=== PATIENT | male | born 1975 | race Caucasian/White ===

== ENCOUNTER 2020-04-02 10:05 | Emergency (ER) | payer OTHER ==
--- OUTSIDE RECORDS SUMMARY | 2020-04-02 10:33 | XMS REPORT | Summary of Care ---
:1975 Author Organization [facility] - [facility] Address [address] [place] [address] Care Team Providers Name Role Phone Dalton Paul Primary Care Provider Reason for Visit Reason Comments Body Aches Fever Cough Fatigue Encounter Details Date Type Department Care Team Description 03/26/2020 Urgent Care [facility] Family Minerva Bryan PA [address] [place] [id number] Acute URI (Primary Dx); [facility] Exposure to COVID-19 virus [address] [place] [address] Allergies No Known Allergiesdocumented as of this encounter (statuses as of 03/26/2020) Medications Medication Sig Dispensed Refills Start Date End Date Status PILOCARPINE HCL Place in each 0 Active (PILOCAR OPHTHALMIC) eye. fluticasone (FLONASE) Use 2 Sprays in 1 Bottle 5 01/10/2012 Active 50 mcg/actuation nasal each nostril 2 spray (two) times daily. ranitidine (ZANTAC See patient 56 Tab 1 03/13/2012 Active MAXIMUM STRENGTH) 150 instructions to mg tabletIndications: wean off of Laryngopharyngeal proton pump reflux (LPR), Globus inhibitor therapy sensation pantoprazole (PROTONIX) Take 40 mg by 0 Active 40 mg EC tablet mouth daily. escitalopram (LEXAPRO) Take 10 mg by 0 Active 10 mg tablet mouth daily. CALCIUM Take by mouth. 0 Acti ve CARBONATE/VITAMIN D3 (VITAMIN D-3 ORAL) MULTIVITAMIN ORAL Take by mouth. 0 Active DOCOSAHEXANOIC ACID/EPA Take 2 Caps by 0 Active (FISH OIL ORAL) mouth daily. psyllium seed, with Take by mouth. 0 Active dextrose, (FIBER ORAL) predniSONE 20 mg 2 tabs now and 2 10 tablet 0 10/19/2018 Active tabletIndications: tabs early each Olecranon bursitis of morning for total left elbow of 5 doses. naproxen 375 mg Take 1 tablet by 60 tablet 1 10/19/2018 Active tabletIndications: mouth 2 (two) Olecranon bursitis of times daily with left elbow meals. benzonatate (TESSALON Take 1 capsule by 20 capsule 0 Active PERLES) 100 mg mouth 3 (three) capsuleIndications: times daily. 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 Allergic rhinitis 09/03/2011 Overview: ICD10 Diagnosis Term Hardness Tester Utility documented as of this encounter (statuses as of 03/26/2020) Immunizations Name Administration Dates Next Due TDAP 09/11/2014 documented as of this encounter Social History Tobacco Use Types Packs/Day Years Used Date Never Smoker Smokeless Tobacco: Never Used Alcohol Use Drinks/Week oz/Week Comments Yes social Sex Assigned at Date Recorded Not on file COVID-19 Exposure Response Date Recorded In the last month, have you been in contact with Yes 03/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 documented as of this encounter Last Filed Vital Signs Vital Sign Reading Time Taken Comments Blood Pressure 122/75 03/26/2020 8:35 AM HIGH SPEED OPERATOR Pulse 74 03/26/2020 8:35 AM HIGH SPEED OPERATOR Temperature 37.9 C (100.2 F) 03/26/2020 8:35 AM HIGH SPEED OPERATOR Respiratory Rate 14 03/26/2020 8:35 AM HIGH SPEED OPERATOR Oxygen Saturation 96% 03/26/2020 8:35 AM HIGH SPEED OPERATOR Inhaled Oxygen Concentration - - Weight 104.3 kg (230 lb) 03/26/2020 8:35 AM HIGH SPEED OPERATOR Height 182.9 cm (6') 03/26/2020 8:35 AM HIGH SPEED OPERATOR Body Mass Index 31.19 03/26/2020 8:35 AM HIGH SPEED OPERATOR documented in this encounter Patient Instructions Patient InstructionsSandra Bryan PA - 03/26/2020 8:00 AM HIGH SPEED OPERATOR Patient Education Coronavirus Disease 2019 (COVID-19): Overview Coronavirus disease 2019 (COVID-19) is a respiratory illness. It's caused by a new (novel) coronavirus. There are many types of coronavirus. Coronaviruses are a very common cause of colds and bronchitis. They may sometimes cause lung infection (pneumonia). Symptoms can range from mild to severe. Some people have no symptoms.These viruses are also found in some animals. All 50 states in the [place] have reported cases of COVID-19. Most states report "community spread" of COVID-19. This means the source of the illness is not known.COVID-19 is a rapidly-emerging infectious disease. This means that scientists are actively researching it.There are information updates reg ularly. Public health officials are working to find the source. How the virus spreads is not yet fully understood, but it seems to spread and infect people fairly easily. Some people who have been infected in an area may not be sure how or where they were infected. The virus may be spread through droplets of fluid that a person coughs or sneezes into the air. It may be spread if you touch a surface with the virus on it, such as a handle or object, and then touch your eyes, nose, or mouth. For the latest information, visit the CDC website at www.cdc.gov/coronavirus/2019-ncov. Or call 619-DUD-PBWY (273-014-9114). What are the symptoms of COVID-19? Some people have no symptoms or mild symptoms. Symptoms can also vary from person to person. As experts learn more about COVID-19, other symptoms are being reported. Symptoms may appear 2 to 14 days after contact with the virus: Fever or chills Coughing Trouble breathing or feeling short of breath Sore throat Stuffy or runny nose Headache and body aches Fatigue Nausea, vomiting, diarrhea, or abdominal pain New loss of sense of smell or taste You can check your symptoms with the [facility] Coronavirus Self-Plate Gauger. What are possible complications from COVID-19? In many cases, this virus can cause infection (pneumonia) in both lungs. In some cases, this can cause . Certain people are at higher risk for complications. This includes older adults and people with serious chronic health conditions such as heart or lung disease, diabetes, or kidney disease. It includes people with health conditions that suppress the immune system. And it includes people taking medicines that suppress the immune system. As experts learn more about COVID-19, other complications are being reported that may be linked to COVID-19. Rarely, some children have developed severe complications called multisystem inflammatory syndrome in children (MIS-C). MIS- C seems to be similar to [place] disease, a rare condition causing inflammation of blood vessels and body organs. It's not yet known if MIS-C happens only in children, orif adults are also at risk. It's also not known if it's related to COVID-19, because many children, but not all, have tested positive for the virus. Experts continue to study MIS-C. The CDC advises healthcare providers to report to local health departments any person under age 2121 years old who is ill enough to be in the hospital and has all of the following: A fever over 100.4F (38.0C) for more than 24 hours and a positive SARS-CoV-2 test or exposureto the virus in the last 4 weeks Inflammation in at least 2 organs such as the heart, lungs, or kidneys with lab tests that show inflammation No other diagnoses besides COVID-19 explain the child's symptoms How is COVID-19 diagnosed? Your healthcare provider will ask about your symptoms. He or she will ask where you live, and about your recent travel, and any contact with sick people. If your healthcare provider thinks you may haveCOVID-19, he or she will consider whether to test you for COVID-19. This depends on the availabilityof testing in your area, and how sick you are. Follow all instructions from your healthcare provider. Guidelines for testing may change as more information about the virus becomes available. Currently,COVID-19 is diagnosed by: Viral test. Viral tests tell if you have a current COVID-19 infection. A nose-throat swab may bewiped inside your nose to the back of your throat. Or a sample of your saliva may be taken. Either of these samples will be checked for the SARS-CoV-2 virus. Availability of tests vary. Some test kits can be done at home, but must be sent to a lab to be checked. Viral tests called lauft-fr-bxsi tests (POCTs) may be done at some testing sites. The results are available within about an hour. Other types of viral tests must be sent to a lab, and it may be several days before the results are back. If your healthcare provider thinks or confirms that you have COVID-19, you may have other tests. These tests may include: Antibody blood test. Antibody tests are being looked at to find out if a person has previously been infected with the virus and may now have antibodies such as SARS AB IgG in their blood to give some immunity. The accuracy and availability of antibody tests vary. An antibody test may not be able to show if you have a current infection because it can take up to a few weeks after infection to make antibodies. It's not yet known how long immunity lasts after being infected with the virus. Sputum culture. A small sample of mucus coughed from your lungs (sputum) may be collected if youhave a moist cough. It may be checked for the virus or to look for pneumonia. Imaging tests. You may have a chest X-ray or CT scan. Note about reinfection and your immunity At this time, it's unclear if people can be reinfected with COVID-19. The CDC notes that if a personhas fully recovered from COVID-19 and is retested within 3 months of the first infection, they may continue to have low levels of the virus in their body and test positive for COVID-19, even though they are not spreading COVID-19. Having a positive COVID-19 test after an infection doesn't mean you can't be reinfected. It's not yet known how long immunity lasts after being infected with the virus. How is COVID-19 treated? There is currently no medicine proven to prevent or treat the virus. Some experimental medicines arebeing tested for COVID-19. Other medicines used to treat other conditions are being looked at for COVID-19, but these are not currently approved to treat it. The most proven treatments right now are those to help your body while it fights the virus. This is known as supportive care. Supportive care may include: Getting rest. This helps your body fight the illness. Staying hydrated. Drinking liquids is the best way to prevent dehydration. Try to drink 6 to 8 glasses of liquids every day, or as advised by your provider. Also check with your provider about which fluids are best for you. Don't drink fluids that contain caffeine or alcohol. Taking jjwz-xbk-amzblbr (OTC)pain medicine. These are used to help ease pain and reduce fever.Follow your healthcare provider's instructions for which OTC medicine to use. For severe illness, you may need to stay in the hospital. Care during severe illness may include: IV (intravenous) fluids. These are given through a vein to help keep your body hydrated. Oxygen. You may be given supplemental oxygen or ventilation with a breathing machine (ventilator). This is done so you get enough oxygen in your body. Prone positioning. Depending on how sick you are during your hospital stay, your healthcare teammay turn you regularly on your stomach. This is called prone positioning. It helps increase the amount of oxygen you get to your lungs. Follow your healthcare team's instructions on position changes while you're in the hospital. Also follow their discharge advice on the best positions to help your breathing once you go home. People who have had COVID-19 and are fully recovered may be asked by their healthcare team to consider donating plasma. This is called COVID-19 convalescent plasma donation. Plasma from people fully recovered from COVID-19 may contain antibodies to help fight COVID-19 in people who are currently seriou sly ill with the disease. Experts don't know if the donated plasma will work well as a treatment. Research continues, and the FDA has approved it for emergency use in certain people with serious or life-threatening COVID-19. Talk with your provider to learn more about convalescent plasma donation and whether you qualify to donate. Are you at risk for COVID-19? You are at risk for COVID-19 if you have had close contact with someone with the virus, or if you live in or traveled to an area with cases of it. Close contact means being within about 6 feet of someone, or living in the same house or visiting a person who has or may have COVID-19. Some recent studies suggest that COVID-19 may be spread by people who are not showing symptoms. Date last modified: 11/20/2019 Darrell wright reviewed this educational content on 02/28/201919997479-7308 [employer], [employer]. All rights reserved. This information is not intended as a substitute for professional medical care. Always follow your healthcare professional's instructions. SPEED OPERATOR documented in this encounter Progress Notes Sandra Bryan PA - 03/26/2020 8:00 AM CST Cc: Chief Complaint Patient presents with Body Aches Fever Cough Sore Throat Fatigue Thea Sauer is a 44 year old male. Patient presents with URI symptoms that began 3 days ago. COVID19 exposure? Yes, mother who lives with them tested positive. URI Presenting symptoms: congestion, cough (a little, but not much), fatigue, fever (tmax: 100.6) and sore throat (improved) Presenting symptoms: no ear pain, no facial pain and no rhinorrhea Duration: 3 days Timing: Intermittent Progression: Unchanged Chronicity: New Worsened by: Nothing Associated symptoms: headaches (mild intermittent) and myalgias Associated symptoms: no arthralgias, no neck pain, no sinus pain, no sneezing, no swollen glands andno wheezing Risk factors: sick contacts Risk factors: not elderly, no chronic cardiac disease, no chronic kidney disease, no chronic respiratory disease, no diabetes mellitus, no immunosuppression and no recent illness Allergies Thea has No Known Allergies. Medications Outpatient Medications Prior to Visit Medication Sig Dispense Refill naproxen 375 mg tablet Take 1 tablet by mouth 2 (two) times daily with meals. 60 tablet 1 predniSONE 20 mg tablet 2 tabs now and 2 tabs early each morning for total of 5 doses. 10 tablet0 psyllium seed, with dextrose, (FIBER ORAL) Take by mouth. DOCOSAHEXANOIC ACID/EPA (FISH OIL ORAL) Take 2 Caps by mouth daily. CALCIUM CARBONATE/VITAMIN D3 (VITAMIN D-3 ORAL) Take by mouth. MULTIVITAMIN ORAL Take by mouth. escitalopram (LEXAPRO) 10 mg tablet Take 10 mg by mouth daily. pantoprazole (PROTONIX) 40 mg EC tablet Take 40 mg by mouth daily. ranitidine (ZANTAC MAXIMUM STRENGTH) 150 mg tablet See patient instructions to wean off of proton pump inhibitor therapy 56 Tab 1 fluticasone (FLONASE) 50 mcg/actuation nasal spray Use 2 Sprays in each nostril 2 (two) times daily. 1 Bottle 5 PILOCARPINE HCL (PILOCAR OPHTHALMIC) Place in each eye. No facility-administered medications prior to visit. Histories Past Medical History: Diagnosis Date Allergic rhinitis Disc herniation c6/c7 GERD (gastroesophageal reflux disease) Testicular cancer as a kid now cured Past Surgical History: Procedure Laterality Date CHOLECYSTECTOMY FUNCTIONAL ENDOSCOPIC SINUS SURGERY WITH FUSION ([facility]) 11/23/2011 Surgeon: Tip Weaver MD; Location: [facility] ORCHIECTOMY AR ANESTH,KNEE AREA SURGERY SEPTOPLASTY 11/23/2011 Surgeon: Tip Weaver MD; Location: [facility] TURBINATE REDUCTION 11/23/2011 Surgeon: Tip Weaver MD; [facility] Social History Socioeconomic History Marital status: Spouse name: Not on file Number of children: Not on file Years of education: Not on file Highest education level: Not on file Occupational History Not on file Social Needs Financial resource strain: Not on file Food insecurity Worry: Not on file Inability: Not on file Transportation needs Medical: Not on file Non-medical: Not on file Tobacco Use Smoking status: Never Smoker Smokeless tobacco: Never Used Substance and Sexual Activity Alcohol use: Yes Comment: social Drug use: No Sexual activity: Not on file Lifestyle Physical activity Days per week: Not on file Minutes per session: Not on file Stress: Not on file Relationships Social connections Talks on phone: Not on file Gets together: Not on file Attends buddhism service: Not on file Active member of club or organization: Not on file Attends meetings of clubs or organizations: Not on file Relationship status: Not on file Intimate partner violence Fear of current or ex partner: Not on file Emotionally abused: Not on file Physically abused: Not on file Forced sexual activity: Not on file Other Topics Concern Not on file Social History Narrative Not on file Family History Problem Relation Age of Onset Cancer Mother Hypertension Father Coronary Heart Disease Mother Diabetes Unknown Stroke Father Review of Systems Constitutional: Positive for fatigue and fever (tmax: 100.6). Negative for activity change, appetitechange, chills and diaphoresis. HENT: Positive for congestion and sore throat (improved). Negative for ear discharge, ear pain, facial swelling, postnasal drip, rhinorrhea, sinus pressure, sinus pain, sneezing, trouble swallowing andvoice change. Eyes: Negative for pain, discharge, redness and itching. Respiratory: Positive for cough (a little, but not much). Negative for chest tightness, shortness ofbreath and wheezing. Cardiovascular: Negative for chest pain, palpitations and leg swelling. Gastrointestinal: Negative for abdominal pain, constipation, diarrhea, nausea and vomiting. Musculoskeletal: Positive for myalgias. Negative for arthralgias, back pain, gait problem, joint swelling, neck pain and neck stiffness. Skin: Negative for color change and rash. Neurological: Positive for headaches (mild intermittent). Negative for dizziness, syncope, weakness and light-headedness. Psychiatric/Behavioral: Negative for confusion. Vital Signs BP 122/75 | Pulse 74 | Temp 37.9 C (100.2 F) (Oral) | Resp 14 | Ht 6' (1.829 m) | Wt 230 lb(104.3 kg) | SpO2 96% | BMI 31.19 kg/m Physical Exam Vitals signs and nursing note reviewed. Constitutional: General: He is not in acute distress. Appearance: He is well-developed. He is not ill-appearing, toxic-appearing or diaphoretic. HENT: Head: Normocephalic and atraumatic. Right Ear: External ear normal. Left Ear: External ear normal. Nose: Nose normal. Mouth/Throat: Mouth: Mucous membranes are moist. Pharynx: Oropharynx is clear. Eyes: General: Right eye: No discharge. Left eye: No discharge. Conjunctiva/sclera: Conjunctivae normal. Neck: Musculoskeletal: Normal range of motion. Cardiovascular: Rate and Rhythm: Normal rate and regular rhythm. Heart sounds: Normal heart sounds. Pulmonary: Effort: Pulmonary effort is normal. No respiratory distress. Breath sounds: Normal breath sounds. No stridor. No wheezing, rhonchi or rales. Abdominal: General: Bowel sounds are normal. There is no distension. Palpations: Abdomen is soft. Tenderness: There is no abdominal tenderness. Musculoskeletal: Normal range of motion. Skin: General: Skin is warm and dry. Findings: No rash. Neurological: Mental Status: He is alert and oriented to person, place, and time. Psychiatric: Behavior: Behavior normal. Assessment/Plan Acute URI (primary encounter diagnosis) Exposure to COVID-19 virus Plan: COVID-19 (MOLECULAR TESTING NUCLEIC ACID AMPLIFICATION), POCT FLU A AND B (MOLECULAR), benzonatate (TESSALON PERLES) 100 mg capsule, Results for THEA SAUER ( ) as of 03/26/2020 09:02 Ref. Range 03/26/2020 00:00 POCT INFLUENZA A Latest Ref Range: Negative - Negative Negative POCT INFLUENZA B Latest Ref Range: Negative - Negative Negative Well appearing, non-toxic, NAD. HR < 100, lungs CTAB, O2 sat 96%. Neg flu. Likely 2/2 COVID-19 given close exposure. COVID-19 test ordered. Educated on the following at home care: -Take tessalon prn cough. Do not combine with otc cough medicine. -Take Tylenol as needed, avoid nsaids -Take otc claritin/nu/zyrtec -Increase water intake -Take over the counter vitamin C/multivitamin with vitamin C -REST -Wash hands often -Cover mouth when coughing -Wear mask with in the same room/car as others -Gargle with warm salt water as needed -Drink warm liquids as needed. -Throat lozenges as needed -Quarantine until your COVID results are back -Stay in your own bedroom and use a separate bathroom -Keep at least 6 feet from you and others -Avoid sharing personal household items, dishes, glasses, cups, towels -Clean high traffic/touch areas daily. These include but not limited to: doorknobs, refrigerator/cabinet handles, phones, keyboards, tablets, light switches. -Monitor your symptoms. Take your temperature 2 times daily. -Follow-up with PCP as needed, if no improvement. -Monitor your symptoms. Go to the ED if worsening symptoms: chest pain, difficulty breathing, coughing up blood, weakness, dizziness, passing out, AMS. -CDC handout provided Pt ed/precautions given in detail regarding conditions/medicaitons. Er precautions given. Pt reportsunderstanding and agrees. rtc if s/s worsen or do not improve; Plan of care, desired health behaviors, goals, Ddx, & any prescribed or OTC medications discussed with patient. Education resources & self management tools provided and reviewed with AVS. Patient/guardian/family verbalized understanding & agrees to plan of care. Barriers to care: NONE Ability to manage care: Good This visit did not involve counseling and coordination that comprised more than 50% of the visit time. documented in this encounter Plan of Treatment Name Type Priority Associated Diagnoses Order S ra COVID-19 (MOLECULAR LAB Routine Acute URI Expected: 03/26/2020, TESTING Exposure to COVID-19 Expires: NUCLEIC ACID virus AMPLIFICATION) Health Maintenance Due Date Last Done Comments SARS-CoV-2 (COVID-19) Vaccine (1 1993 of 2) INFLUENZA VACCINE (#1) 2020 Postponed from 10/30/2019 (Patient Ill Tod ay) Depression Screening 03/26/2021 03/26/2020 DTaP,Tdap,and Td Vaccines (2 - 09/11/2024 09/11/2014 Td) PNEUMOCOCCAL 0-64 YEARS COMBINED Aged Out No longer eligible based on SERIES patient's age to complete this topic documented as of this encounter Procedures Procedure Name Priority Date/Time Associated Diagnosis Comme nts POCT FLU A AND B Routine 03/26/2020 Acute URI Results for this (MOLECULAR) procedure are i n the results section . documented in this encounter Results POCT FLU A AND B (MOLECULAR) (03/26/2020) Pathologist Sig nature POCT INFLUENZA A Negative Negative - Negative POCT INFLUENZA B Negative Negative - Negative Specimen Swab documented in this encounter Visit Diagnoses Diagnosis Acute URI - Primary Acute upper respiratory infections of un specified site Exposure to COVID-19 virus documented in this encounter Additional Health Concerns Infection Onset Date Last Indicated Resolved Time COVID-19 Rule Out 03/26/2020 03/26/2020 documented as of this encounter Insurance Payer Benefit Plan / Subscriber ID Effective Dates Phone Addre ss Type Group [facility] [id number] 2017-Prese HMO/ PPO/ [employer] PPO nt [address] (Home) [place], [place] [phone] [id number] (Work) documented as of this encounter
--- OUTSIDE RECORDS SUMMARY | 2020-04-02 10:33 | XMS REPORT | Summary of Care ---
:1975 Author Organization [facility] - [facility] Address [address] [place] [address] Care Team Providers Name Role Phone Dalton Paul Primary Care Provider Reason for Visit Reason Comments Body Aches Fever Cough Fatigue Encounter Details Date Type Department Care Team Description 03/26/2020 Urgent Care [facility] Family Minerva Bryan PA [address] [place] [id number] Acute URI (Primary Dx); Medicine - [place] [facility] Exposure to COVID-19 virus [address] [place] [address] Allergies No Known Allergiesdocumented as [...] Allergic rhinitis 09/03/2011 Overview: ICD10 Diagnosis Term Building Dismantler Utility documented as of this encounter (statuses [...] in contact with Yes 03/26/2020 8:17 AM FACIAL OPERATOR someone who was confirmed or suspected to have Coronavirus / COVID-19? documented as of this encounter Last Filed Vital Signs Vital Sign Reading Time Taken Comments Blood Pressure 122/75 03/26/2020 8:35 AM FACIAL OPERATOR Pulse 74 03/26/2020 8:35 AM FACIAL OPERATOR Temperature 37.9 C (100.2 F) 03/26/2020 8:35 AM FACIAL OPERATOR Respiratory Rate 14 03/26/2020 8:35 AM FACIAL OPERATOR Oxygen Saturation 96% 03/26/2020 8:35 AM FACIAL OPERATOR Inhaled Oxygen Concentration - - Weight 104.3 kg (230 lb) 03/26/2020 8:35 AM FACIAL OPERATOR Height 182.9 cm (6') 03/26/2020 8:35 AM FACIAL OPERATOR Body Mass Index 31.19 03/26/2020 8:35 AM FACIAL OPERATOR documented in this encounter Patient Instructions Patient InstructionsSandra Bryan PA - 03/26/2020 8:00 AM FACIAL OPERATOR Patient Education Coronavirus Disease 2019 (COVID-19): [...] the CDC website at www.cdc.gov/coronavirus/2019-ncov. Or call 508-HJB-EPSO ([phone]). What are the symptoms of COVID-19? Some [...] You can check your symptoms with the [facility] Coronavirus Self-Cutter Operator. What are possible complications from COVID-19? In [...] lab to be checked. Viral tests called ggoxf-sq-uxwf tests (POCTs) may be done at some [...] fluids that contain caffeine or alcohol. Taking teul-gum-tdexqjf (OTC)pain medicine. These are used to help [...] Darrell wright reviewed this educational content on 02/28/201919996767-7854 The [employer], [employer]. All rights reserved. This information is not intended as a substitute for professional medical care. Always follow your healthcare professional's instructions. AL OPERATOR documented in this encounter Progress Notes [...] MD; Location: [facility] ORCHIECTOMY [place] ANESTH,KNEE AREA SURGERY SEPTOPLASTY 11/23/2011 Surgeon: Tip Weaver MD; Location: [facility] TURBINATE REDUCTION 11/23/2011 Surgeon: Tip Weaver MD; [facility] Social History Socioeconomic History Marital [...] file Gets together: Not on file Attends bahai service: Not on file Active member of [...] Effective Dates Phone Addre ss Type Group [facility] [id number] 2017-Prese HMO/ PPO/ HEALTHCARE HEALTHCARE PPO nt S [address] (Home) [place], [place] [phone] [id number] (Work) documented as of this encounter
--- OUTSIDE RECORDS SUMMARY | 2020-04-02 10:33 | XMS REPORT | Continuity of Care Document ---
:1975 Author Organization [facility] t Address [address] [place] [address] Care Team Providers Name Role Phone Provider, Urgent Care Attending Clinician Unavailable Problems This patient has no known problems. Allergies, Adverse Reactions, Alerts This patient has no known allergies or adverse reactions. Medications This patient has no known medications. Procedures This patient has no known procedures. Encounters Start End Encounter Admission Attending Care Care Encounter Source Date/Time Date/Time Type Type Clinicians Facility Department ID 2020-03-26 2020-03-26 [facility] [id number] 08:33:11 08:53:11 [facility] [id number] [facility] [id number] Pete [id number] [address] One Results This patient has no known results.
--- OUTSIDE RECORDS SUMMARY | 2020-04-02 10:33 | XMS REPORT | Summary of Care ---
:1975 Author Organization [facility] - [facility] Address [address] [place] [address] Care Team Providers Name Role Phone Dalton Paul Primary Care Provider Reason for Visit Reason Comments Body Aches Fever Cough Fatigue Encounter Details Date Type Department Care Team Description 03/26/2020 Urgent Care [facility] Minerva Bryan PA [address] [place] [phone] Acute URI (Primary Dx); Medicine - [place] [facility] Exposure to COVID-19 virus [address] [place] [address] Allergies No Known Allergiesdocumented as [...] Allergic rhinitis 09/03/2011 Overview: ICD10 Diagnosis Term [place] Operator Utility documented as of this encounter (statuses [...] in contact with Yes 03/26/2020 8:17 AM COMPUTER BOOKKEEPER someone who was confirmed or suspected to have Coronavirus / COVID-19? documented as of this encounter Last Filed Vital Signs Vital Sign Reading Time Taken Comments Blood Pressure 122/75 03/26/2020 8:35 AM COMPUTER BOOKKEEPER Pulse 74 03/26/2020 8:35 AM COMPUTER BOOKKEEPER Temperature 37.9 C (100.2 F) 03/26/2020 8:35 AM COMPUTER BOOKKEEPER Respiratory Rate 14 03/26/2020 8:35 AM COMPUTER BOOKKEEPER Oxygen Saturation 96% 03/26/2020 8:35 AM COMPUTER BOOKKEEPER Inhaled Oxygen Concentration - - Weight 104.3 kg (230 lb) 03/26/2020 8:35 AM COMPUTER BOOKKEEPER Height 182.9 cm (6') 03/26/2020 8:35 AM COMPUTER BOOKKEEPER Body Mass Index 31.19 03/26/2020 8:35 AM COMPUTER BOOKKEEPER documented in this encounter Patient Instructions Patient InstructionsSandra Bryan PA - 03/26/2020 8:00 AM COMPUTER BOOKKEEPER Patient Education Coronavirus Disease 2019 (COVID-19): Overview [...] the CDC website at www.cdc.gov/coronavirus/2019-ncov. Or call 015-QHO-LHEO ([phone]). What are the symptoms of COVID-19? Some [...] You can check your symptoms with the [facility] Coronavirus Self-Medication Specialist. What are possible complications from COVID-19? In [...] lab to be checked. Viral tests called uniuf-ns-nxmx tests (POCTs) may be done at some [...] fluids that contain caffeine or alcohol. Taking fltm-dcv-lcsemeb (OTC)pain medicine. These are used to help [...] Darrell wright reviewed this educational content on 02/28/201919997430-8231 The [employer], [employer]. All rights reserved. This information is not intended as a substitute for professional medical care. Always follow your healthcare professional's instructions. UTER BOOKKEEPER documented in this encounter Progress Notes Sandra [...] MD; Location: [facility] [place]IECTOMY [place] ANESTH,KNEE AREA SURGERY SEPTOPLASTY 11/23/2011 Surgeon: Tip Weaver MD; Location: [facility] TURBINATE REDUCTION 11/23/2011 Surgeon: Tip Weaver MD; [facility] Social History Socioeconomic History Marital [...] Effective Dates Phone Addre ss Type Group [facility] [id number] 2017-Prese HMO/ PPO/ HEALTHCARE HEALTHCARE PPO nt S [address] (Home) [place], [place] [phone] [address] (Work) documented as of this encounter
--- NOTE | 2020-04-02 11:12 | RAD REPORT ---
EXAM DESCRIPTION: RAD - Chest Pa And Lat (2 Views) - 04/02/2020 10:52 am CLINICAL HISTORY: DYSPNEA Chest pain. COMPARISON: No comparisons FINDINGS: Mildly prominent interstitial lung markings are seen, greater on the left. This likely ind icates viral infection/bronchitis. The heart is upper limit of normal in size. No displaced fractures .
--- NOTE | 2020-04-02 13:13 | ER ---
Nurse's Notes [facility] Name: Roderick Sauer Age: 44 yrs Sex: Male : 1975 Arrival Date: 04/02/2020 Time: 10:08 Bed 8 Private MD: Diagnosis: COVID Infection/bronchitis Presentation: 04/02 10:12 Chief complaint: Patient states: fatigue, low O2 sat at home was 90-93% O2 sat supine sv was 80% but prone was in the 90s, fever 100.7 x 11 days ago. COVID +. Coronavirus screen: Client presents with at least one sign or symptom that may indicate coronavirus-19. Standard/surgical mask placed on the client. Provider contacted for isolation considerations. Client reports previous positive COVID test result. Ebola Screen: No symptoms or risks identified at this time. Risk Assessment: Do you want to hurt yourself or someone else? Patient reports no desire to harm self or others. 10:12 Method Of Arrival: Ambulatory sv 10:12 Acuity: AGNES 3 sv 10:18 Initial Sepsis Screen: Does the patient meet any 2 criteria? No. Patient's initial sv sepsis screen is negative. Does the patient have a suspected source of infection? No. Patient's initial sepsis screen is negative. Onset of symptoms was March 22, 2020. Triage Assessment: 10:12 General: Appears in no apparent distress. uncomfortable, Behavior is calm, cooperative, sv appropriate for age. Neuro: Level of Consciousness is awake, alert, obeys commands, Oriented to person, place, time, situation, Gait is steady. Respiratory: Respiratory effort is even, unlabored, Respiratory pattern is regular, symmetrical. Historical: - Allergies: 10:18 No Known Allergies; sv - PMHx: 10:18 Beta thalassemia; testicular cancer; sv - PSHx: 10:18 Cholecystectomy; nasal; sv - Immunization history:: Adult Immunizations up to date. - Social history:: Smoking status: Patient denies any tobacco usage or history of. Screenin:13 Abuse screen: Denies threats or abuse. Denies injuries from another. Nutritional hb screening: No deficits noted. Tuberculosis screening: No symptoms or risk factors identified. Fall Risk None identified. Assessment: 10:23 Reassessment: Received VO from Dr Garner for CXR. sv 11:30 General: Appears in no apparent distress. Behavior is calm, cooperative. Pain: Denies hb pain. Neuro: Level of Consciousness is awake, alert, obeys commands, Oriented to person, place, time, situation. Cardiovascular: Capillary refill < 3 seconds Patient's skin is warm and dry. Respiratory: Reports shortness of breath at rest on exertion cough that is non-productive, Respiratory effort is even, unlabored, Respiratory pattern is regular, symmetrical. GI: No signs and/or symptoms were reported involving the gastrointestinal system. : No signs and/or symptoms were reported regarding the genitourinary system. EENT: No signs and/or symptoms were reported regarding the EENT system. Derm: Skin is pink, warm \T\ dry. Musculoskeletal: No signs and/or symptoms reported regarding the musculoskeletal system. 13:05 Reassessment: Patient appears in no apparent distress at this time. Patient and/or hb family updated on plan of care and expected duration. Pain level reassessed. Patient is alert, oriented x 3, equal unlabored respirations, skin warm/dry/pink. 13:30 Reassessment: Patient appears in no apparent distress at this time. Patient and/or ss family updated on plan of care and expected duration. Pain level reassessed. Vital Signs: 10:18 BP 122 / 79; Pulse 77; Resp 16; Temp 99.2; Pulse Ox 97% on R/A; Weight 103.42 kg; sv Height 6 ft. 0 in. (182.88 cm); 10:18 Body Mass Index 30.92 (103.42 kg, 182.88 cm) sv ED Course: 10:08 Patient arrived in ED. ds1 10:12 Juan Garner MD is Attending Physician. kdr 10:12 Arm band placed on. sv 10:14 Triage completed. sv 10:48 X-ray completed. Patient tolerated procedure well. Patient taken to lobby, via 1 wheelchair. 10:49 Chest Pa And Lat (2 Views) XRAY In Process Unspecified. EDMS 11:19 Flory Velarde, RN is Primary Nurse. hb 12:13 Patient has correct armband on for positive identification. Bed in low position. Call hb light in reach. Side rails up X 1. 13:11 Collin Hadley MD is Referral Physician. kdr 13:30 No provider procedures requiring assistance completed. Patient did not have IV access ss during this emergency room visit. Administered Medications: No medications were administered Outcome: 13:12 Discharge ordered by . kdr 13:30 Discharged to home ambulatory. ss 13:30 Condition: good 13:30 Discharge instructions given to patient, Instructed on discharge instructions, follow up and referral plans. medication usage, Demonstrated understanding of instructions, follow-up care, medications. 13:31 Patient left the ED. ss Signatures: Dispatcher [employer] Jazmyn Burrell RN RN Juan Garner MD MD kdr Harvey, Martha 1 Staci Stewart 1 Hetal Olsen RN RN Flory Velarde RN RN Corrections: (The following items were deleted from the chart) 10:22 10:12 Chief complaint: Patient states: fatigue, low O2 sat at home was 90-93%, fever sv 100.7 x 11 days ago. COViID +. sv
--- NOTE | 2020-04-02 13:13 | EDPHYS ---
Physician Documentation [facility] Name: Roderick Sauer Age: 44 yrs Sex: Male : 1975 Arrival Date: 04/02/2020 Time: 10:08 Bed 8 Private MD: ED Physician Juan Garner HPI: 04/02 14:57 This 44 yrs old Male presents to ER via Ambulatory with complaints of Covid + kdr Low O2. 14:57 When the patient awoke this morning, he was SOB and unable to get his O2 saturation kdr above 88% at home.. He tried various positions laying down and then increased activity. None of which allowed him to improve his feeling or SOB/saturation. Onset: The symptoms/episode began/occurred suddenly, this morning. Severity of symptoms: At their worst the symptoms were mild in the emergency department the symptoms have resolved. The patient has not experienced similar symptoms in the past. The patient has been recently seen by a physician: the patient's primary care provider, Dr. Hadley. The patient was recently diagnosed with COVID recently and has been treated by Dr. Hadley with Ivermectin, Z-pack and steroid. He has about three days of steroids left on the current regimine.. He states that he could not get his stats above 88%. Historical: - Allergies: 10:18 No Known Allergies; sv - PMHx: 10:18 Beta thalassemia; testicular cancer; sv - PSHx: 10:18 Cholecystectomy; nasal; sv - Immunization history:: Adult Immunizations up to date. - Social history:: Smoking status: Patient denies any tobacco usage or history of. ROS: 14:57 Constitutional: Negative for chills, and weight loss - he does report a measure fever kdr of over 101 at home but he was not confident of the accuracy Eyes: Negative for injury, pain, redness, and discharge, ENT: Negative for injury, pain, and discharge, Neck: Negative for injury, pain, and swelling, Cardiovascular: Negative for chest pain, palpitations, and edema, Abdomen/GI: Negative for abdominal pain, nausea, vomiting, diarrhea, and constipation, Back: Negative for injury and pain, : Negative for injury, bleeding, discharge, and swelling, MS/Extremity: Negative for injury and deformity, Skin: Negative for injury, rash, and discoloration, Neuro: Negative for headache, weakness, numbness, tingling, and seizure activity. Psych: Negative for depression, anxiety, suicide ideation, homicidal ideation, and hallucinations, Allergy/Immunology: Negative for hives, rash, and allergies, Endocrine: Negative for neck swelling, polydipsia, polyuria, polyphagia, and marked weight changes, Hematologic/Lymphatic: Negative for swollen nodes, abnormal bleeding, and unusual bruising. 14:57 Respiratory: Positive for cough, dyspnea on exertion, shortness of breath, on exertion. Negative for hemoptysis, orthopnea, pleurisy, sputum production, wheezing. Exam: 14:57 Constitutional: This is a well developed, well nourished patient who is awake, alert, kdr and in no acute distress. Head/Face: Normocephalic, atraumatic. Eyes: Pupils equal round and reactive to light, extra-ocular motions intact. Lids and lashes normal. Conjunctiva and sclera are non-icteric and not injected. Cornea within normal limits. Periorbital areas with no swelling, redness, or edema. Neck: Trachea midline, no thyromegaly or masses palpated, and no cervical lymphadenopathy. Supple, full range of motion without nuchal rigidity, or vertebral point tenderness. No Meningismus. Chest/axilla: Normal chest wall appearance and motion. Nontender with no deformity. No lesions are appreciated. Cardiovascular: Regular rate and rhythm with a normal S1 and S2. No gallops, murmurs, or rubs. Normal PMI, no JVD. No pulse deficits. Respiratory: Lungs have equal breath sounds bilaterally, clear to auscultation and percussion. No rales, rhonchi or wheezes noted. No increased work of breathing, no retractions or nasal flaring. Abdomen/GI: Soft, non-tender, with normal bowel sounds. No distension or tympany. No guarding or rebound. No evidence of tenderness throughout. Back: No spinal tenderness. No costovertebral tenderness. Full range of motion. Skin: Warm, dry with normal turgor. Normal color with no rashes, no lesions, and no evidence of cellulitis. MS/ Extremity: Pulses equal, no cyanosis. Neurovascular intact. Full, normal range of motion. Neuro: Awake and alert, GCS 15, oriented to person, place, time, and situation. Cranial nerves II-XII grossly intact. Motor strength 5/5 in all extremities. Sensory grossly intact. Cerebellar exam normal. Normal gait. Psych: Awake, alert, with orientation to person, place and time. Behavior, mood, and affect are within normal limits. Vital Signs: 10:18 BP 122 / 79; Pulse 77; Resp 16; Temp 99.2; Pulse Ox 97% on R/A; Weight 103.42 kg; sv Height 6 ft. 0 in. (182.88 cm); 10:18 Body Mass Index 30.92 (103.42 kg, 182.88 cm) sv MDM: 13:12 Patient medically screened. kdr 14:57 Data reviewed: vital signs, nurses notes, radiologic studies. Counseling: I had a kdr detailed discussion with the patient and/or guardian regarding: the historical points, exam findings, and any diagnostic results supporting the discharge/admit diagnosis, radiology results, the need for outpatient follow up, for definitive care, an bank analyst. Physician consultation: Collin Hadley MD regarding consult, patient's condition, outpatient follow-up, and will see patient in office, tomorrow. 04/02 10:22 Order name: Chest Pa And Lat (2 Views) XRAY; Complete Time: 11:49 sv Administered Medications: No medications were administered Disposition: 04/02/20 13:12 Discharged to Home. Impression: COVID Infection/bronchitis. - Condition is Stable. - Discharge Instructions: Acute Bronchitis, [id number], Viral Respiratory Infection, Hwtj-[id number]-Mnlr, COVID-19. - Medication Reconciliation Form, Thank You Letter form. - Follow up: Collin Hadley MD; When: Tomorrow; Reason: Further diagnostic work-up, Recheck today's complaints, Continuance of care, Re-evaluation by your physician. - Problem is an ongoing problem. - Symptoms have improved. - Notes: Dr. Hadley will call in a new prescription for Ivermecti and Prednisone. Counting from your first dose of Ivermectin, please take the next dose on days 6 \T\amp; 8. Follow the new steroid instrctions and call Dr. Hadley tomorrow for a phone conference and evaluation. Signatures: Dispatcher [employer] Jazmyn Burrell RN RN sv Rittger, Kevin, MD MD [facility] Hetal Olsen RN RN ss Flory Velarde RN RN Corrections: (The following items were deleted from the chart) 13:31 13:12 04/02/2020 13:12 Discharged to Home. Impression: COVID Infection/bronchitis. ss Condition is Stable. Forms are Medication Reconciliation Form, Thank You Letter, Antibiotic Education, Prescription Opioid Use. Follow up: Collin Hadley; When: Tomorrow; Reason: Further diagnostic work-up, Recheck today's complaints, Continuance of care, Re-evaluation by your physician. Problem is an ongoing problem. Symptoms have improved. kdr
== END 2020-04-02 13:31 | disposition home or self-care (01) ==
LOC: ER 10:05
DX: U07.1 COVID-19 (principal); J40 Bronchitis, not specified as acute or chronic; Z85.47 Personal history of malignant neoplasm of testis
CPT/HCPCS: 71046; 99283